=== PATIENT | female | born 1985 | race American Indian/Alaskan Native ===

== ENCOUNTER 2017-01-26 00:44 | Emergency (ER) | payer SELFPAY ==
[2017-01-26 01:18] VITALS: BP 119/78
--- NOTE | 2017-01-26 04:21 | Emergency Department Report ---
- General Chief Complaint: Upper Respiratory Infection Stated Complaint: CHEST PAIN , HIGH TEMP DRY COUGH X'S 3 DAYS Time Seen by Provider: 01/26/17 04:19 Source: patient Mode of arrival: Ambulatory Limitations: No Limitations - History of Present Illness Initial Comments: 31-year-old female presents to emergency with complaints of productive green cough, sinus congestion, nasal congestion for 3 days. She denies of any fever here but claims that she had a fever at home for last 3 days. She denies any other complaint. MD Complaint: fever, cough, sore throat, nasal congestion, sinus pain -: Gradual, days(s) (3) Severity: moderate Severity scale (0 -10): 3 Quality: dull, aching Consistency: constant Improves With: nothing Worsens With: nothing Context: sick contacts Associated Symptoms: fever, myalgias, rhinorrhea, nasal congestion, cough Treatments Prior to Arrival: "cold medicine" - Related Data Previous Rx's Medication Instructions Recorded Last Taken Type Acetaminophen/Codeine 1 tab PO Q6H PRN #10 tab 11/27/14 Unknown Rx [Acetaminophen-Codeine #3 TAB] Cyclobenzaprine [Flexeril 10 MG 10 mg PO TID PRN #10 tablet 10/30/15 Unknown Rx TAB] Ibuprofen [Motrin] 800 mg PO Q8HR PRN #15 tablet 10/30/15 Unknown Rx Azithromycin [Zithromax Z-LUKE] 0 mg PO DAILY #1 pack 01/26/17 Unknown Rx Cetirizine HCl [ZyrTEC] 10 mg PO DAILY #20 capsule 01/26/17 Unknown Rx predniSONE [Deltasone] 60 mg PO QDAY #15 tab 01/26/17 Unknown Rx Allergies Allergy/AdvReac Type Severity Reaction Status Date / Time No Known Allergies Allergy Verified 11/27/14 14:50 ED Review of Systems ROS: Stated complaint: CHEST PAIN , HIGH TEMP DRY COUGH X'S 3 DAYS Other details as noted in HPI Comment: All other systems reviewed and negative Constitutional: denies: chills, fever Eyes: denies: eye pain, eye discharge, vision change ENT: throat pain. denies: ear pain Respiratory: cough. denies: shortness of breath, wheezing Cardiovascular: denies: chest pain, palpitations Endocrine: no symptoms reported Gastrointestinal: denies: abdominal pain, nausea, diarrhea Genitourinary: denies: urgency, dysuria, discharge Musculoskeletal: denies: back pain, joint swelling, arthralgia Skin: denies: rash, lesions Neurological: denies: headache, weakness, paresthesias Psychiatric: denies: anxiety, depression Hematological/Lymphatic: denies: easy bleeding, easy bruising ED Past Medical Hx - Past Medical History Previous Medical History?: No - Surgical History Past Surgical History?: No - Social History Smoking Status: Never Smoker Substance Use Type: None - Medications Home Medications: Home Medications Medication Instructions Recorded Confirmed Last Taken Type Acetaminophen/Codeine 1 tab PO Q6H PRN #10 tab 11/27/14 Unknown Rx [Acetaminophen-Codeine #3 TAB] Cyclobenzaprine [Flexeril 10 MG 10 mg PO TID PRN #10 tablet 10/30/15 Unknown Rx TAB] Ibuprofen [Motrin] 800 mg PO Q8HR PRN #15 tablet 10/30/15 Unknown Rx Azithromycin [Zithromax Z-LUKE] 0 mg PO DAILY #1 pack 01/26/17 Unknown Rx Cetirizine HCl [ZyrTEC] 10 mg PO DAILY #20 capsule 01/26/17 Unknown Rx predniSONE [Deltasone] 60 mg PO QDAY #15 tab 01/26/17 Unknown Rx ED Physical Exam - General Limitations: No Limitations General appearance: alert, in no apparent distress - Head Head exam: Present: atraumatic, normocephalic, other (mild frontal sinus tenderness) - Eye Eye exam: Present: normal appearance - ENT ENT exam: Present: mucous membranes moist, other (mild bilateral pharyngeal erythema and tonsilar swelling without exudates) - Neck Neck exam: Present: normal inspection - Respiratory Respiratory exam: Present: normal lung sounds bilaterally. Absent: respiratory distress - Cardiovascular Cardiovascular Exam: Present: regular rate, normal rhythm. Absent: systolic murmur, diastolic murmur, rubs, gallop - GI/Abdominal GI/Abdominal exam: Present: soft, normal bowel sounds - Extremities Exam Extremities exam: Present: normal inspection - Back Exam Back exam: Present: normal inspection - Neurological Exam Neurological exam: Present: alert, oriented X3 - Psychiatric Psychiatric exam: Present: normal affect, normal mood - Skin Skin exam: Present: warm, dry, intact, normal color. Absent: rash ED Course Vital Signs 01/26/17 01:15 Temperature 99.1 F Pulse Rate 72 Respiratory 16 Rate Blood Pressure 119/78 O2 Sat by Pulse 96 Oximetry Critical care attestation.: If time is entered above; I have spent that time in minutes in the direct care of this critically ill patient, excluding procedure time. ED Disposition Clinical Impression: Acute bronchitis with bronchospasm Acute frontal sinusitis Qualifiers: Recurrence: non-recurrent Qualified Code(s): J01.10 - Acute frontal sinusitis, unspecified Disposition: DISCHARGED TO HOME OR SELFCARE Is pt being admited?: No Does the pt Need Aspirin: No Condition: Good Instructions: Acute Bronchitis (ED), Sinusitis (ED) Prescriptions: Azithromycin [Zithromax Z-LUKE] 0 mg PO DAILY #1 pack Cetirizine HCl [ZyrTEC] 10 mg PO DAILY #20 capsule predniSONE [Deltasone] 60 mg PO QDAY #15 tab Referrals: PRIMARY CARE, [Primary Care Provider] - 3-5 Days Forms: Work/School Release Form(ED)
== END 2017-01-26 05:05 | disposition home or self-care (01) ==
LOC: ED 00:44
DX: J20.9 Acute bronchitis, unspecified (principal); J01.10 Acute frontal sinusitis, unspecified; M79.1 Myalgia
CPT/HCPCS: 99282